=== PATIENT | male | born 1980 ===

== ENCOUNTER 2016-12-30 09:49 | Emergency (ER) | payer OTHER ==
[2016-12-30 10:00] VITALS: RESP 18; TEMP 98
--- NOTE | 2016-12-30 10:08 | ED PDOC ---
Arrival/HPI - General Chief Complaint: Chest Pain Time Seen by Provider: 12/30/16 09:50 Historian: Patient - History of Present Illness Narrative History of Present Illness (Text): 12/30/16 10:00 A 36 year old male former smoker who has been on and off for the past year, who denies significant past medical history, presents to the emergency department for left-sided chest pain, he cannot characterize which began 1 month ago. The patient reports that he does not have pain, but he does have intermittent pain which has worsened over the last 3-4 days. The patient denies any other pain, fever, nausea, shortness of breath, abdominal pain, dysuria, or any other complaints at this time. never had cardiac stress test 12/30/16 11:18 Time/Duration: Other (1 month) Symptom Onset: Gradual Symptom Course: Unchanged Quality: Pressure, Tightness Activities at Onset: Light Context: Home Past Medical History - Provider Review Nursing Documentation Reviewed: Yes - Infectious Disease Hx of Infectious Diseases: None - Psychiatric Hx Substance Use: No - Anesthesia Hx Anesthesia: No Family/Social History - Physician Review Nursing Documentation Reviewed: Yes Family/Social History: No Known Family HX Smoking Status: Former Smoker Hx Alcohol Use: No Hx Substance Use: No Allergies/Home Meds Allergies/Adverse Reactions: Allergies Tetanus Vaccines and Toxoid Allergy (Intermediate, Verified 12/30/16 10:00) REDNESS tetanus Allergy (Intermediate, Uncoded 12/30/16 10:00) REDNESS Home Medications: Home Meds Medication Instructions Recorded Confirmed Cetirizine HCl [Wal-Zyr] 10 mg PO DAILY 12/30/16 12/30/16 Omeprazole [Omeprazole] 0 mg PO DAILY 12/30/16 12/30/16 Review of Systems - Physician Review All systems were reviewed & negative as marked: Yes - Review of Systems Respiratory: absent: SOB Cardiovascular: Other (chest pressure/tightness) Gastrointestinal: absent: Nausea Genitourinary Male: absent: Dysuria Physical Exam Vital Signs Reviewed: Yes Vital Signs Temp Pulse Resp BP Pulse Ox 12/30/16 11:00 68 18 113/75 98 12/30/16 09:57 98 F 70 18 111/85 99 Temperature: Afebrile Blood Pressure: Normal Pulse: Regular Respiratory Rate: Normal Appearance: Positive for: Well-Appearing, Non-Toxic, Comfortable Pain Distress: None Mental Status: Positive for: Alert and Oriented X 3 - Systems Exam Head: Present: Atraumatic, Normocephalic Pupils: Present: PERRL Extroacular Muscles: Present: EOMI Conjunctiva: Present: Normal Mouth: Present: Moist Mucous Membranes Neck: Present: Normal Range of Motion Respiratory/Chest: Present: Clear to Auscultation, Good Air Exchange. No: Respiratory Distress, Accessory Muscle Use Cardiovascular: Present: Regular Rate and Rhythm, Normal S1, S2. No: Murmurs Abdomen: Present: Normal Bowel Sounds. No: Tenderness, Distention, Peritoneal Signs Back: Present: Normal Inspection Upper Extremity: Present: Normal Inspection. No: Cyanosis, Edema Lower Extremity: Present: Normal Inspection. No: Edema Neurological: Present: GCS=15, CN II-XII Intact, Speech Normal Skin: Present: Warm, Dry, Normal Color. No: Rashes Psychiatric: Present: Alert, Oriented x 3, Normal Insight, Normal Concentration Medical Decision Making ED Course and Treatment: 12/30/16 10:00 Impression: A 36 year old male with chest pressure. Differential Diagnosis included but are not limited to: cp r/o acs Plan: -- EKG -- Chest x-ray -- Labs -- Urinalysis -- Reassess and disposition Progress Notes: EKG: Ordered, reviewed, and independently interpreted the EKG. Rate : 68 BPM Rhythm : NSR Interpretation : No ST/T changes. Comparison : No previous EKG for comparison. The patient is PERC negative. 12/30/16 11:16 HEART score- low probability- atyical pain pt declines further obs, asks for d/ c and outpt f/u - Lab Interpretations Lab Results: 12/30/16 10:20 12/30/16 10:20 Lab Results 12/30/16 10:30: Urine Color Yellow, Urine Appearance Clear, Urine pH 6.5, Ur Specific [place] 1.010, Urine Protein Negative, Urine Glucose (UA) Negative, Urine Ketones Negative, Urine Blood Negative, Urine Nitrate Negative, Urine Bilirubin Negative, Urine Urobilinogen 0.2, Ur Leukocyte Esterase Negative 12/30/16 10:20: Sodium 141, Potassium 4.1, Chloride 104, Carbon Dioxide 26, Anion Gap 15, BUN 13, Creatinine 0.8, Est GFR ( Amer) > 60, Est GFR (Non- Af Amer) > 60, Random Glucose 87, Calcium 9.8, Magnesium 2.2, Total Bilirubin 0.6, AST 36, ALT 66 H, Alkaline Phosphatase 80, Lactate Dehydrogenase 425, Total Creatine Kinase 129, Troponin I < 0.01, Total Protein 7.4, Albumin 4.7, Globulin 2.7, Albumin/Globulin Ratio 1.7 12/30/16 10:20: PT 11.0, INR 1.00, APTT 32.2 12/30/16 10:20: WBC 6.8, RBC 5.28, Hgb 15.3, Hct 44.5, MCV 84.3, MCH 29.0, MCHC 34.4, RDW 13.3, Plt Count 222, MPV 10.4, Gran % 50.9, Lymph % (Auto) 33.2, [place] % (Auto) 7.5 H, Eos % (Auto) 7.5 H, Baso % (Auto) 0.9, Gran # 3.46, Lymph # 2.3 , [place] # 0.5, Eos # 0.5, Baso # 0.06 - RAD Interpretation Radiology Orders: 12/30/16 10:04 CHEST PORTABLE [RAD] Stat - Scribe Statement The provider has reviewed the documentation as recorded by the Scribe Mya Pina Provider Scribe Attestation: All medical record entries made by the Scribe were at my direction and personally dictated by me. I have reviewed the chart and agree that the record accurately reflects my personal performance of the history, physical exam, medical decision making, and the department course for this patient. I have also personally directed, reviewed, and agree with the discharge instructions and disposition. Disposition/Present on Arrival - Present on Arrival Any Indicators Present on Arrival: No History of DVT/PE: No History of Uncontrolled Diabetes: No Urinary Catheter: No History of Decub. Ulcer: No History Surgical Site Infection Following: None - Disposition Have Diagnosis and Disposition been Completed?: Yes Diagnosis: Chest pain Disposition: HOME/ ROUTINE Disposition Time: 11:16 Patient Problems: Current Active Problems Problem Status Onset Chest pain Acute Condition: STABLE Discharge Instructions (ExitCare): Chest Pain (ED) Additional Instructions: please follow up with your doctor. return to er with worsening symptoms or concerns. please see specialist. Referrals: Blake Naranjo MD [Primary Care Provider] - Follow up with primary Hannallah,Deo A, MD [Staff Provider] - Follow up with primary Forms: [employer] ([place]ese)
[2016-12-30 10:41] LABS: BASO # 0.06 K/mm3 (0.0-2.0); BASO % 0.9 % (0.0-3.0); EOS # 0.5 (0.0-0.7); EOS % 7.5 % (1.5-5.0); GRAN # 3.46 (1.4-6.5); GRAN % 50.9 % (50.0-68.0); HEMATOCRIT 44.5 % (42.0-52.0); LYMPH # 2.3 (1.2-3.4); LYMPH % 33.2 % (22.0-35.0); MEAN CELL VOLUME 84.3 fl (80.0-105.0); MEAN CORPUSCULAR HGB CONC 34.4 g/dl (31.0-37.0); MEAN PLATELET VOLUME 10.4 fl (7.0-11.0); MONO # 0.5 (0.1-0.6); MONO % 7.5 % (1.0-6.0); RED CELL DISTRIBUTION WIDTH 13.3 % (11.5-14.5); WHITE BLOOD COUNT 6.8 10^3/ul (4.5-11.0)
[2016-12-30 10:46] LABS: PH,URINE 6.5 (4.7-8.0); URINE BILIRUBIN NEGATIVE (NEGATIVE); URINE BLOOD NEGATIVE (NEGATIVE); URINE GLUCOSE (UA) NEGATIVE (NEGATIVE); URINE KETONE NEGATIVE (NEGATIVE); URINE LEUKOCYTE ESTERASE NEGATIVE Leu/uL (NEGATIVE); URINE PROTEIN NEGATIVE mg/dL (<30 mg/dL); URINE UROBILINOGEN 0.2 E.U./dL (<1 E.U./dL)
[2016-12-30 10:49] LABS: ALB/GLOB RATIO 1.7 (1.1-1.8); ALKALINE PHOSPHATASE 80 U/L (38-126); ALT/SGPT 66 U/L (7-56); AST/SGOT 36 U/L (17-59); BILIRUBIN,TOTAL 0.6 mg/dL (0.2-1.3); BLOOD UREA NITROGEN 13 mg/dL (7-21); CALCIUM 9.8 mg/dL (8.4-10.5); CARBON DIOXIDE 26 mmol/L (21-33); CHLORIDE 104 mmol/L (98-107); GFR AFRICAN-AMERICAN > 60; GLUCOSE,RANDOM 87 mg/dL (70-110); MAGNESIUM 2.2 mg/dL (1.7-2.2); POTASSIUM 4.1 mmol/L (3.6-5.0); SODIUM 141 mmol/L (132-148); TOTAL PROTEIN 7.4 g/dL (5.8-8.3)
[2016-12-30 10:53] LABS: PARTIAL THROMBOPLASTIN TIME 32.2 Seconds (25.1-36.5)
--- NOTE | 2016-12-30 11:00 | RAD ---
HISTORY: cp COMPARISON: No prior. FINDINGS: LUNGS: No active pulmonary disease. PLEURA: No significant pleural effusion identified, no pneumothorax apparent. CARDIOVASCULAR: Normal. OSSEOUS STRUCTURES: No significant abnormalities. VISUALIZED UPPER ABDOMEN: Normal. OTHER FINDINGS: None. IMPRESSION: No acute cardiopulmonary disease appreciated.
[2016-12-30 11:01] VITALS: BP 113/75; PULSE 68; O2SAT 98
[2016-12-30 11:02] LABS: TROPONIN I < 0.01 ng/mL
[2016-12-30 11:03] LABS: URINE APPEARANCE CLEAR (CLEAR); URINE COLOR YELLOW (YELLOW)
--- NOTE | 2016-12-31 09:02 | CARD ---
APPROVED REPORT EKG Measurement Heart [id number] HI [id number] [id number] <Conclusion> Normal sinus rhythm Normal ECG Wandering Baseline
== END 2016-12-30 11:33 | disposition home or self-care (01) ==
LOC: ED 09:49
DX: R07.9 Chest pain, unspecified (principal); Z87.891 Personal history of nicotine dependence